=== PATIENT | female | born 1970 | race Caucasian/White ===

== ENCOUNTER 2018-05-13 21:44 | Emergency (ER) | payer OTHER ==
[2018-05-13] MEDS ORDERED: ACETAMINOPHEN 325 MG TABLET PO STA (22:50)
[2018-05-13] MEDS ORDERED: ONDANSETRON ODT 4 MG TABLET TL STA (22:50)
[2018-05-13 23:02] VITALS: BP 142/97
--- NOTE | 2018-05-13 23:10 | XRAY Report ---
Procedure Date: 05/13/2018 Accession Number: [id number] / [id number] Procedure: XR - Ankle 3 View LT CPT Code: FULL RESULT: EXAM: LEFT ANKLE RADIOGRAPHY EXAM DATE: 05/13/2018 10:00 PM. CLINICAL HISTORY: Story pop in left ankle while roller-skating. COMPARISON: None. TECHNIQUE: 3 views. FINDINGS: Bones: Distal portion of a tibial intramedullary chicho with 2 distal transverse screws demonstrated the chicho traverses an old, healed distal diaphyseal tibial fracture. No definite acute fractures. There is a small focus of cortical irregularity of the lateral aspect of the tip of the fibula on the AP view for which a small nondisplaced fracture is not excluded. Small plantar and Achilles calcaneal spurs. Joints: Normal. No effusion. No subluxations. The ankle mortise is normally aligned. Soft Tissues: Lateral ankle soft tissue swelling and small tibiotalar joint effusion. IMPRESSION: 1. Old, healed distal tibial diaphyseal fracture, status post ORIF. 2. No definite acute fractures. However, a small, nondisplaced fracture of the tip of the fibula is not excluded, as discussed above. 3. Lateral ankle soft tissue swelling. 4. Tibiotalar joint effusion. RADIA
--- NOTE | 2018-05-13 23:12 | XRAY Report ---
Procedure Date: 05/13/2018 Accession Number: [id number] / [id number] Procedure: XR - Tib/Fib LT CPT Code: FULL RESULT: EXAM: LEFT TIBIA/FIBULA RADIOGRAPHY EXAM DATE: 05/13/2018 10:13 PM. CLINICAL HISTORY: Hardware. COMPARISON: None. TECHNIQUE: 2 views. FINDINGS: Bones: Healed fracture deformity of the distal tibial diaphysis, status post ORIF of the long intramedullary chicho, 2 proximal and 2 distal transverse screws. Old, healed proximal fibular diaphyseal fracture deformity. No definite acute fractures. Joints: The visualized knee and ankle joints are normal. No effusions. Soft Tissues: Lateral ankle soft tissue swelling. IMPRESSION: 1. Old, healed distal tibial diaphyseal fracture, status post ORIF. 2. Old, healed proximal fibular diaphyseal fracture. 3. No definite acute fractures. 4. Lateral ankle soft tissue swelling. RADIA
--- NOTE | 2018-05-13 23:17 | ED Physician Documentation ---
PD HPI LOWER EXT INJURY - Stated complaint Stated Complaint: LT ANKLE INJURY - Chief complaint Chief Complaint: Ext Problem - History obtained from History obtained from: Patient, Family - History of Present Illness PD HPI LOW EXT INJURY LOCATION: Left, Ankle Type of injury: Fall, Twist Where injury occurred: Other (rollerskating) Timing - onset: How many hours ago (3) Timing - duration: Hours (3) Timing - details: Abrupt onset Pain level max: 8 Pain level now: 6 Improved by: Rest, Ice, Immobilization Worsened by: Moving, Palpating Associated symptoms: Swelling. No: Weakness, Numbness, Tingling Contributing factors: No: Anticoagulated Recently seen: Not recently seen Review of Systems Musculoskeletal: denies: Neck pain, Back pain Neurologic: denies: Focal weakness, Numbness, Headache PD PAST MEDICAL HISTORY - Past Medical History Past Medical History: Yes Cardiovascular: None Respiratory: None Endocrine/Autoimmune: None GI: Other : None HEENT: None Psych: None Musculoskeletal: None Derm: None - Past Surgical History Past Surgical History: Yes General: Colonoscopy Ortho: Other - Present Medications Home Medications: Ambulatory Orders Medication Instructions Recorded Confirmed No Known Home Medications [No 10/04/16 10/04/16 Known Home Medications] - Allergies Allergies/Adverse Reactions: Allergies Allergy/AdvReac Type Severity Reaction Status Date / Time codeine Allergy Unknown Verified 10/03/16 14:48 naproxen Allergy Hives Verified 10/03/16 14:48 - Social History Does the pt smoke?: Yes Smoking Status: Current every day smoker Does the pt drink ETOH?: No Does the pt have substance abuse?: No Substance Use and Type: Marijuana - Immunizations Immunizations are current?: Yes - POLST Patient has POLST: No PD ED PE NORMAL - Vitals Vital signs reviewed: Yes - General General: Alert and oriented X 3, No acute distress - HEENT HEENT: Moist mucous membranes - Neck Neck: Supple, no meningeal sign - Derm Derm: Warm and dry - Extremities Extremities: Other (Left ankle - Swelling and tenderness over the lateral Malleolus. Neurovascularly intact. Otherwise normal examination of the left foot and ankle.) - Neuro Neuro: Alert and oriented X 3 Results - Vitals Vitals: Vital Signs - 24 hr 05/13/18 05/13/18 21:56 23:00 Temperature 36.6 C 37.2 C Heart Rate 67 71 Respiratory 18 16 Rate Blood Pressure 165/102 H 142/97 H O2 Saturation 97 95 Oxygen O2 Source Room air - Rads (name of study) Left ankle x-ray Radiology: Prelim report reviewed, EMP read contemporaneously, See rad report ( Old, healed distal tibial diaphyseal fracture, status post ORIF. 2. No definite acute fractures. However, a small, nondisplaced fracture of the tip of the fibula is not excluded, as discussed above. 3. Lateral ankle soft tissue swelling. 4. Tibiotalar joint effusion. ) Left tib-fib x-ray Radiology: Prelim report reviewed, EMP read contemporaneously, See rad report ( Old, healed distal tibial diaphyseal fracture, status post ORIF. 2. Old, healed proximal fibular diaphyseal fracture. 3. No definite acute fractures. 4. Lateral ankle soft tissue swelling. ) PD MEDICAL DECISION MAKING - ED course Complexity details: considered differential, d/w patient ED course: Patient with a left ankle sprain. Placed in a gel splint for comfort. Has her own crutches. Given Tylenol for pain here. She also has some nausea and was eating p.o. without difficulty. We will continue supportive care and follow-up with her doctor. Counseled regarding missed fractures and may need repeat xrays if not improving. Patient counseled regarding signs and symptoms for which I believe and urgent re-evaluation would be necessary. Patient with good understanding of and agreement to plan and is comfortable going home at this time This document was made in part using voice recognition software. While efforts are made to proofread this document, sound alike and grammatical errors may occur. - Sepsis Event Vital Signs: Vital Signs - 24 hr 05/13/18 05/13/18 21:56 23:00 Temperature 36.6 C 37.2 C Heart Rate 67 71 Respiratory 18 16 Rate Blood Pressure 165/102 H 142/97 H O2 Saturation 97 95 Oxygen O2 Source Room air Departure - Departure Disposition: 01 Home, Self Care Clinical Impression: Left ankle sprain Qualifiers: Encounter type: initial encounter Involved ligament of ankle: unspecified ligament Qualified Code(s): S93.402A - Sprain of unspecified ligament of left ankle, initial encounter Condition: Good Instructions: ED Sprain Ankle W X Ray Follow-Up: Stephan Vegas MD [Primary Care Provider] - Within 1 week Comments: If you are still having pain in 1 week, you should follow-up with your doctor for repeat x-ray. Return if you worsen. Use the crutches as needed. You may bear weight as tolerated. Discharge Date/Time: 05/13/18 23:22
== END 2018-05-13 23:22 | disposition home or self-care (01) ==
LOC: ED 21:44
DX: S93.402A Sprain of unspecified ligament of left ankle, initial encounter (principal); W18.30XA Fall on same level, unspecified, initial encounter; X50.9XXA Other and unspecified overexertion or strenuous movements or postures, initial encounter; Y93.51 Activity, roller skating (inline) and skateboarding; F17.200 Nicotine dependence, unspecified, uncomplicated
CPT/HCPCS: 73590; 73610; 99283; A9270; Q0162

== ENCOUNTER 2018-11-28 06:54 | Emergency (ER) | payer OTHER ==
[2018-11-28 06:59] VITALS: BP 140/83
[2018-11-28] MEDS ORDERED: IPRATROPIUM/ALBUTEROL 3 ML NEB INH STA (07:48)
--- NOTE | 2018-11-28 07:49 | ED Physician Documentation ---
PD HPI HEENT - Stated complaint Stated Complaint: THROAT PX - Chief complaint Chief Complaint: Heent - History obtained from History obtained from: Patient - History of Present Illness Timing - onset: Last night Timing - details: Still present Location: Throat Associated symptoms: Cough Similar symptoms before: No diagnosis - Additional information Additional information: The patient is a 48-year-old female who presents with sore throat that started this morning, along with swollen lymph nodes. She has felt chilled, and reports cough. She denies headache, shortness of breath, nausea or vomiting. She is concerned not only about the possibility of strep throat, but also possibility of Chlamydia infection of her throat, stating that she performed oral intercourse 2 weeks ago. Review of Systems Constitutional: reports: Chills. denies: Fever Ears: denies: Ear pain Nose: denies: Congestion Throat: reports: Sore throat, Swollen tonsils Cardiac: denies: Chest pain / pressure Respiratory: reports: Cough. denies: Dyspnea GI: denies: Abdominal Pain, Nausea, Vomiting : denies: Dysuria Skin: denies: Rash Musculoskeletal: denies: Neck pain Neurologic: denies: Headache PD PAST MEDICAL HISTORY - Past Medical History Cardiovascular: None Respiratory: None Endocrine/Autoimmune: None GI: Other : None HEENT: None Psych: None Musculoskeletal: None Derm: None - Past Surgical History Past Surgical History: Yes General: Colonoscopy Ortho: Other - Present Medications Home Medications: Ambulatory Orders Medication Instructions Recorded Confirmed Albuterol Sulf [Ventolin Hfa 1 - 2 puffs INH Q4HR PRN #1 inhaler 11/28/18 Inhaler] Doxycycline Hyclate 100 mg PO BID #20 capsule 11/28/18 Ibuprofen [Ibu] 800 mg PO TID PRN #30 tablet 11/28/18 - Allergies Allergies/Adverse Reactions: Allergies Allergy/AdvReac Type Severity Reaction Status Date / Time codeine Allergy Unknown Verified 11/28/18 06:59 naproxen Allergy Hives Verified 11/28/18 06:59 - Social History Does the pt smoke?: Yes Smoking Status: Current every day smoker Does the pt drink ETOH?: No Does the pt have substance abuse?: No - Immunizations Immunizations are current?: Yes - POLST Patient has POLST: No PD ED PE NORMAL - Vitals Vital signs reviewed: Yes (Borderline hypertension initially.) - General General: Alert and oriented X 3, Well developed/nourished - HEENT HEENT: Atraumatic, EOMI, Ears normal, Other (Enlarged, erythematous tonsils bilaterally, without exudates.) - Neck Neck: Supple, no meningeal sign, Other (Mildly enlarged anterior cervical nodes bilaterally.) - Cardiac Cardiac: RRR, No murmur - Respiratory Respiratory: Other (Faint end expiratory wheezes at the bases bilaterally.) - Abdomen Abdomen: Soft, Non tender - Back Back: No CVA TTP - Derm Derm: No rash - Extremities Extremities: No edema, No calf tenderness / cord - Neuro Neuro: Alert and oriented X 3, No motor deficit, Normal speech Results - Vitals Vitals: Oxygen O2 Source Room air - Labs Labs: Microbiology 11/28/18 07:45 Group A Strep Throat Culture - Final Throat MIXED OROPHARYNGEAL HECTOR PRESENT. NO BETA STREP PRESENT IN CULTURE. Laboratory Tests 11/28/18 07:45 Group A Strep Rapid Negative PD MEDICAL DECISION MAKING - ED course Complexity details: reviewed results, re-evaluated patient, considered differential, d/w patient ED course: The patient's presentation is most consistent with tonsillitis. She also has faint expiratory wheezing on chest examination, suggestive of asthmatic bronchitis. Strep screen of her throat is negative. A swab for Chlamydia was obtained, and results are pending. Treatment in the emergency department included administration of DuoNeb nebulizer, which cleared her faint wheezing. She is being discharged with prescription for doxycycline (pending Chlamydia culture result) and for albuterol inhaler. I discussed with her the diagnosis, symptomatic treatment and outpatient follow-up, as well as potentially worrisome signs or symptoms that should prompt reevaluation in the emergency department. Departure - Departure Disposition: 01 Home, Self Care Clinical Impression: Tonsillitis Asthmatic bronchitis Qualifiers: Asthma severity: mild Asthma persistence: intermittent Asthma complication type: uncomplicated Qualified Code(s): J45.20 - Mild intermittent asthma, uncomplicated Condition: Stable Instructions: ED Bronchitis Asthmatic, ED Tonsillitis Follow-Up: FARZAD TAYLOR MD [Primary Care Provider] - Prescriptions: Albuterol Sulf [Ventolin Hfa Inhaler] 1 - 2 puffs INH Q4HR PRN #1 inhaler PRN Reason: Shortness Of Air/Wheezing Doxycycline Hyclate 100 mg PO BID #20 capsule Ibuprofen [Ibu] 800 mg PO TID PRN #30 tablet PRN Reason: Pain Comments: Gargle with cool liquids. Take penicillin 4 times daily as prescribed. You can use ibuprofen as prescribed if needed for fever or discomfort. Use albuterol inhaler if needed for cough or shortness of breath. Follow-up with your primary physician within 1-2 weeks. Call to schedule an appointment. Return to the emergency department if you develop increasing difficulty breathing, increasing difficulty swallowing, or otherwise worsening symptoms. Discharge Date/Time: 11/28/18 08:31
== END 2018-11-28 08:31 | disposition home or self-care (01) ==
LOC: ED 06:54
DX: J03.90 Acute tonsillitis, unspecified (principal); J45.20 Mild intermittent asthma, uncomplicated; F17.200 Nicotine dependence, unspecified, uncomplicated
CPT/HCPCS: 81599; 87070; 87430; 87491; 87591; 94640; 99283